=== PATIENT | female | born 1965 | race Caucasian/White ===

== ENCOUNTER 2017-07-20 13:34 | Emergency (ER) | payer MEDICAID ==
[~2017-07-20] VITALS: Ht 152.4 cm; Wt 49.3 kg
[~2017-07-20 13:34] MED LIST: AMOX1TAB64 PO; CLOT15CR5 TP
[2017-07-20 13:40] VITALS: BP 154/85
[2017-07-20] MEDS ORDERED: AMOXICILLIN/CLAV 875-125MG TABLET PO ONE (14:30)
[2017-07-20] MEDS ORDERED: ACETAMINOPHEN 325 MG TABLET PO ONE (14:30)
[2017-07-20 14:46] LABS: BASOPHILS # (AUTO) 0.01 x10^3/uL (0-0.1); BASOPHILS % (AUTO) 0 % (0-1); EOSINOPHILS # (AUTO) 0.19 x10^3/uL (0-0.4); EOSINOPHILS % (AUTO) 2 % (1-7); LYMPHOCYTES # (AUTO) 2.24 x10^3/uL (1-3.4); LYMPHOCYTES % (AUTO) 26 % (22-44); MD NO; MEAN CORPUSCULAR HEMOGLOBIN 27.5 pg (27.0-34.8); MEAN CORPUSCULAR HGB CONC 32.3 g/dL (32.4-35.8); MEAN CORPUSCULAR VOLUME 85.1 fL (80-100); MEAN PLATELET VOLUME 8.3 fL (7.4-10.4); MONOCYTES # (AUTO) 0.48 x10^3/uL (0.2-0.8); MONOCYTES % (AUTO) 6 % (2-9); NEUTROPHILS # (AUTO) 5.85 x10^3/uL (1.8-6.8); NEUTROPHILS % (AUTO) 67 % (42-75); PLATELET COUNT 437 x10^3/uL (130-400); RED BLOOD COUNT 4.62 x10^6/uL (3.82-5.3); RED CELL DISTRIBUTION WIDTH 13.7 % (9.6-15.2)
[2017-07-20 14:57] LABS: ALANINE AMINOTRANSFERASE 35 U/L (12-78); ALBUMIN 2.9 g/dL (3.4-5.0); ANION GAP 6 mmol/L (5-15); CALCIUM 8.3 mg/dL (8.5-10.1); CHLORIDE 107 mmol/L (98-107); CREATININE 0.64 mg/dL (0.55-1.02)
[2017-07-20 14:59] LABS: ALKALINE PHOSPHATASE 94 U/L (45-117); BILIRUBIN,TOTAL 0.4 mg/dL (0.2-1.0); TOTAL PROTEIN 7.3 g/dL (6.4-8.2)
[2017-07-20] MEDS ORDERED: AMOXICILLIN/CLAV 875-125MG TABLET ONE (15:05)
[2017-07-20] MEDS ORDERED: ACETAMINOPHEN 325 MG TABLET ONE (15:05)
== END 2017-07-20 15:27 | disposition home or self-care (01) ==
LOC: ED 14:07
DX: M79.671 Pain in right foot (principal); R23.8 Other skin changes; F17.210 Nicotine dependence, cigarettes, uncomplicated; I73.9 Peripheral vascular disease, unspecified; L03.90 Cellulitis, unspecified
CPT/HCPCS: 36415; 80053; 85025; 99284

== ENCOUNTER 2017-07-21 09:37 | Emergency (ER) | payer MEDICAID ==
[~2017-07-21] VITALS: Ht 152.4 cm; Wt 48.5 kg
[2017-07-21 09:43] VITALS: BP 165/76
[2017-07-21] MEDS ORDERED: AMOXICILLIN/CLAV 875-125MG TABLET ONE (10:56)
[2017-07-21] MEDS ORDERED: AMOXICILLIN/CLAV 875-125MG TABLET PO ONE (11:00)
== END 2017-07-21 11:16 | disposition home or self-care (01) ==
LOC: ED 10:38
DX: L03.115 Cellulitis of right lower limb (principal); I73.9 Peripheral vascular disease, unspecified
CPT/HCPCS: 99282